=== PATIENT | male | born 1950 | race Hispanic/Latino ===

== ENCOUNTER → 2017-12-30 | Day surgery (SDC) | payer BC ==
--- NOTE | 2017-12-29 13:35 | Diagnostic Imaging Report ---
PROCEDURE: X-RAY CHEST, TWO VIEWS COMPARISON: None. INDICATIONS: PRE OPERATIVE CHEST X-RAY FOR CYSTOSCOPY FINDINGS: LUNGS: Well-inflated. No mass or infiltrate. Pulmonary vasculature is normal. There is mild central bronchial wall thickening. PLEURA: No effusions or pneumothorax. HEART \T\ MEDIASTINUM: The heart is mildly enlarged. There is mild aortic ectasia. There is prominence of pulmonary martina. BONES \T\ SOFT TISSUES: No focal osseous lesions. Soft tissues are unremarkable. CONCLUSION: Mild cardiomegaly without vascular congestion. Prominence of the pulmonary martina could be the result of vascular structures or lymphadenopathy. Mild diffuse bronchial wall thickening suggestive of chronic bronchitis. Dictated by: Jason Wall M.D. on 12/29/2017 at 13:36 Electronically approved by: Jason Wall M.D. on 12/29/2017 at 13:36
[~2017-12-30] MED LIST: ASPIR 8181 MG PO; FENTANYL CITRATE/PF 100MCG/2 ML INJ ONE; GENTAMICIN 120MG/NS 100ML 100 ML ONE; LIDOCAINE HCL 2% LOCAL INJ 5 ML SDV VIAL INJ ONE; METFORMIN HCL1000 MG PO; ONDANSETRON HCL INJ 2 MG/ML VIAL ONE; PROPOFOL IV EMULSION 10 MG/ML 20 ML VIAL ONE; SEVOFLURANE INHAL SOLN 250 ML PEN BTL ONE; VIAGRA50 MG PO
--- OUTSIDE RECORDS SUMMARY | 2017-12-30 07:18 | XMS REPORT ---
Author Author [facility] Address Unknown Phone Unavailable Care Team Providers Care Counter Intelligence Agent Name Role Phone JONEL AVILA Unavailable Unavailable Problems This patient has no known problems. Allergies, Adverse Reactions, Alerts This patient has no known allergies or adverse reactions. Medications This patient has no known medications. Results Test Description Test Time Test Comments Text Results Atomic Results Result Comments CHEST 2 VIEWS [place] [address] Patient Name: ASHLIE CADENA MR #: [id number] : 1950 Age/Sex: 67/M Req #: [id number] Adm Physician: Ordered by: JONEL AVILA MD Report #: [id number] Location: OR Room/Bed: Procedure: [id number] DX/CHEST 2 VIEWS Exam Date: 12/29/17 Exam Time: 1300 REPORT STATUS: Signed PROCEDURE: X-RAY CHEST, TWO VIEWS COMPARISON: None. INDICATIONS: PRE OPERATIVE CHEST X-RAY FOR CYSTOSCOPY FINDINGS: LUNGS: Well-inflated. No mass or infiltrate. Pulmonary vasculature is normal. There is mild central bronchial wall thickening. PLEURA: No effusions or pneumothorax. HEART T MEDIASTINUM: The heart is mildly enlarged. There is mild aortic ectasia. There is prominence of pulmonary martina. BONES T SOFT TISSUES: No focal osseous lesions. Soft tissues are unremarkable. CONCLUSION: Mild cardiomegaly without vascular congestion. Prominence of the pulmonary martina could be the result of vascular structures or lymphadenopathy. Mild diffuse bronchial wall thickening suggestive of chronic bronchitis. Dictated by: Nely Yeung M.D. on 12/29/2017 at 13:36 Electronically approved by: Nely Yeung M.D. on 12/29/2017 at 13:36 Dictated By: NELY YEUNG MD [id number] Transcribed By: ABHISHEK on 12/29/17 1336 COPY TO: JONEL AVILA MD
--- OUTSIDE RECORDS SUMMARY | 2017-12-30 07:18 | XMS REPORT ---
Author Author Admin, [place] Organization [facility] Address [address] [address] Phone Allergies, Adverse Reactions, Alerts Allergy Name Reaction Description Start Date Severity Status Provider [place] Critical Active Ryan Salas MD PCN UNKNOWN reaction Severe Active Rashida Gary MD Conditions or Problems Problem Name Problem Code Onset Date Status Entry Date Provider Comment Standard Description Annotate BMI 38.0-38.9 Active Rashida Gary MD Body Mass Index 38.0-38.9, adult Hematuria 599.70 Active Rashida Gary MD Hematuria, unspecified DIABETES MELLITUS 250.00 Active Kelly Dos Santos MD Diabetes mellitus without mention of complication, type II or unspecified type , not stated as uncontrolled OBESITY 278.00 Active Kelly Dos Santos MD Obesity, unspecified ERECTILE DYSFUNCTION 302.72 Active Maria Luisa Phillip MD Psychosexual dysfunction with inhibited sexual excitement Wellness examination, routine medical ICD-V70.0 Inactive Cisco Levine MD (res) ELEVATED BLOOD PRESSURE ICD-796.2 Inactive Cisco Levine MD (res) Wellness examination, routine medical V70.0 Resolved Kelly Dos Santos MD Routine general medical examination at a health care facility ELEVATED BLOOD PRESSURE 796.2 Resolved Kelly Dos Santos MD Elevated blood pressure reading without diagnosis of hypertension Medication List Medication Instructions Start Date Stop Date Generic Name NDC Status Provider Patient Instruction METFORMIN HCL 1000 MG ORAL TABS take 1 tab Twice a Day METFORMIN HCL 68760920785 Active Malorie Joseph MD Active ASPIRIN 81 MG ORAL TBEC 1 by mouth every day ASPIRIN 24416951992 Active Rashida Gary MD Active VIAGRA 100 MG TAB take 1/4 of a tab By Mouth 1 hr before intamacy. SILDENAFIL CITRATE 71398319278 Active Kelly Dos Santos MD Active GLIPIZIDE 5 MG ORAL TABS take 1 tab Twice a Day GLIPIZIDE 5 MG ORAL TABS 595045 GLIPIZIDE Inactive GLIPIZIDE 5 MG ORAL TABS take 1 tab Twice a Day GLIPIZIDE 51716304755 No Longer Active Malorie Joseph MD Active Immunizations Vaccine Administration Date Value Standard Description influenza immunization (Flu Vax) has been administered transcribed from official record influenza virus vaccine, unspecified formulation PEDIATRIC PNEUMOCOCCAL VACCINE ([id number]) #1 given pneumococcal conjugate vaccine, 13 valent influenza immunization (Flu Vax) has been administered given influenza virus vaccine, unspecified formulation Vital Signs Date Name Value Unit Range Description blood pressure, diastolic 83 mm[Hg] BP landers blood pressure, systolic 141 mm[Hg] BP sys height E&M 69 [in_us] Bdy height pulse rate E&M 85 /min Heart rate respiratory rate E&M 18 /min Resp rate temperature E&M 97.3 [degF] Body temperature weight E&M 248 [lb_av] Weight Measured blood pressure, diastolic 83 mm[Hg] BP landers blood pressure, systolic 144 mm[Hg] BP sys height E&M 69 [in_us] Bdy height pulse rate E&M 78 /min Heart rate respiratory rate E&M 20 /min Resp rate temperature E&M 98.8 [degF] Body temperature weight E&M 254 [lb_av] Weight Measured blood pressure, diastolic 85 mm[Hg] BP landers blood pressure, systolic 148 mm[Hg] BP sys height E&M 69 [in_us] Bdy height pulse rate E&M 73 /min Heart rate respiratory rate E&M 17 /min Resp rate temperature E&M 97.2 [degF] Body temperature weight E&M 248 [lb_av] Weight Measured blood pressure, diastolic 82 mm[Hg] BP landers blood pressure, systolic 150 mm[Hg] BP sys height E&M 69 [in_us] Bdy height pulse rate E&M 82 /min Heart rate respiratory rate E&M 16 /min Resp rate temperature E&M 97.3 [degF] Body temperature weight E&M 254 [lb_av] Weight Measured blood pressure, diastolic 77 mm[Hg] BP landers blood pressure, systolic 142 mm[Hg] BP sys height E&M 69 [in_us] Bdy height pulse rate E&M 85 /min Heart rate respiratory rate E&M 20 /min Resp rate temperature E&M 97.9 [degF] Body temperature weight E&M 252.20 [lb_av] Weight Measured blood pressure, diastolic, second observation 84 mm[Hg] BP landers blood pressure, diastolic, third observation 82 mm[Hg] BP landers blood pressure, diastolic 84 mm[Hg] BP landers blood pressure, systolic, second observation 138 mm[Hg] BP sys blood pressure, systolic, third observation 134 mm[Hg] BP sys blood pressure, systolic 138 mm[Hg] BP sys height E&M 69 [in_us] Bdy height pulse rate E&M 71 /min Heart rate respiratory rate E&M 18 /min Resp rate temperature E&M 97.9 [degF] Body temperature weight E&M 256.40 [lb_av] Weight Measured Diagnostic Results Date Name Value Unit Range Description Lab Report: CBC With Differential/Platelet, Comp. Metabolic Panel (14), ... - Hematology lymphocyte count, blood, automated 1.9 X10E3/UL 10*3/mm3 0.7- 3.1 Lab Report: CBC With Differential/Platelet, Comp. Metabolic Panel (14), ... - Chemistry urea nitrogen, blood 10 mg/dL 8-27 creatinine, serum 1.05 mg/dL 0.76-1.27 chloride, serum 97 mmol/L 97-106 Lab Report: CBC With Differential/Platelet, Comp. Metabolic Panel (14), ... - Hematology mean corpuscular volume, RBC 90 fL 79-97 Lab Report: CBC With Differential/Platelet, Comp. Metabolic Panel (14), ... - Chemistry triglyceride, serum, fasting 106 mg/dL 0-149 Lab Report: CBC With Differential/Platelet, Comp. Metabolic Panel (14), ... - Hematology erythrocyte (RBC) count 4.92 X10E6/UL 10*6/mm3 4.14-5.80 Lab Report: CBC With Differential/Platelet, Comp. Metabolic Panel (14), ... - Chemistry Estimated Glomerular Filtration Rate (calc) 75 mL/min/1.73m2 > 59 Lab Report: CBC With Differential/Platelet, Comp. Metabolic Panel (14), ... - Hematology platelet count 241 X10E3/UL 10*3/mm3 884-827 1028/11/15 red blood cell distribution width 13.1 % 12.3-15.4 Lab Report: CBC With Differential/Platelet, Comp. Metabolic Panel (14), ... - Chemistry protein, total, serum 6.8 g/dL 6.0-8.5 HDL cholesterol, serum 51 mg/dL >39 albumin/globulin ratio, serum 1.7 1.1-2.5 Lab Report: CBC With Differential/Platelet, Comp. Metabolic Panel (14), ... - Hematology eosinophils as percent of blood leukocytes 4 % Lab Report: CBC With Differential/Platelet, Comp. Metabolic Panel (14), ... - Chemistry Absolute Neutrophils 3.8 X10E3/UL 10*3/uL 1.4-7.0 microalbumin/creatinine ratio, urine 59.7 MG/G CREAT ug/mg 0.0- 30.0 Lab Report: CBC With Differential/Platelet, Comp. Metabolic Panel (14), ... - Hematology basophil count, absolute 0.1 x10E3/uL 0.0-0.2 Lab Report: CBC With Differential/Platelet, Comp. Metabolic Panel (14), ... - Chemistry alanine aminotransferase (SGPT), serum 34 U/L 0-44 LDL cholesterol, serum 100 mg/dL 0-99 Lab Report: CBC With Differential/Platelet, Comp. Metabolic Panel (14), ... - Hematology monocytes as percent of blood leukocytes 7 % Lab Report: CBC With Differential/Platelet, Comp. Metabolic Panel (14), ... - Chemistry cholesterol, serum 172 mg/dL 100-199 Lab Report: CBC With Differential/Platelet, Comp. Metabolic Panel (14), ... - Hematology mean corpuscular hemoglobin concentration, RBC 34.5 G/DL % 31.5- 35.7 hemoglobin, blood 15.3 g/dL 12.6-17.7 leukocyte count, blood 6.6 X10E3/UL 10*3/mm3 3.4-10.8 hematocrit, blood 44.3 % 37.5-51.0 Lab Report: CBC With Differential/Platelet, Comp. Metabolic Panel (14), ... - Chemistry globulin, serum 2.5 1.5-4.5 Lab Report: Comp. Metabolic Panel (14), Lipid Panel, Testosterone,Free a ... - Chemistry testosterone, serum, free 11.8 pg/mL 6.6-18.1 Lab Report: CBC With Differential/Platelet, Comp. Metabolic Panel (14), ... - Chemistry thyroid stimulating hormone, serum 0.702 u[iU]/mL 0.450-4.500 albumin, serum 4.3 g/dL 3.6-4.8 very low density lipoproteins 21 mg/dL 5-40 Office Visit: Adult Followup Dr. Levine Rm. 1 - Chemistry blood glucose, 2 hours postprandial 127 mg/dL Lab Report: CBC With Differential/Platelet, Comp. Metabolic Panel (14), ... - Chemistry calcium, serum 9.2 mg/dL 8.6-10.2 Lab Report: CBC With Differential/Platelet, Comp. Metabolic Panel (14), ... - Hematology basophils as percent of blood leukocytes 1 % Lab Report: CBC With Differential/Platelet, Comp. Metabolic Panel (14), ... - Urinalysis microalbumin/total urine volume 46.1 mg/L Not Estab. Lab Report: CBC With Differential/Platelet, Comp. Metabolic Panel (14), ... - Hematology monocyte count, blood, automated 0.5 X10E3/UL 10*3/uL 0.1-0.9 Lab Report: CBC With Differential/Platelet, Comp. Metabolic Panel (14), ... - Chemistry immature granulocytes, percentage of total cells, blood 0 % urea nitrogen/creatinine ratio, serum 10 10-22 Lab Report: CBC With Differential/Platelet, Comp. Metabolic Panel (14), ... - Genetics/fertility eGFR if 86 mL/min/1.73m2 >59 Lab Report: CBC With Differential/Platelet, Comp. Metabolic Panel (14), ... - Hematology lymphocytes as percent of blood leukocytes 29 % Lab Report: CBC With Differential/Platelet, Comp. Metabolic Panel (14), ... - Chemistry carbon dioxide, venous blood 25 mmol/L 18-29 sodium, serum 139 mmol/L 136-144 Lab Report: Hemoglobin A1c - Chemistry hemoglobin A1C, blood, as % of total hemoglobin 5.8 % 4.8-5.6 Office Visit: Adult Followup Dr levine Rm6 - Chemistry blood glucose, fasting 93 mg/dL Lab Report: CBC With Differential/Platelet, Comp. Metabolic Panel (14), ... - Chemistry alkaline phosphatase, serum 117 U/L 39-117 Lab Report: Comp. Metabolic Panel (14), Lipid Panel, Testosterone,Free a ... - Chemistry testosterone, total 580 ng/dL [phone] Lab Report: CBC With Differential/Platelet, Comp. Metabolic Panel (14), ... - Hematology Eosinophil Absolute Count 0.3 X10E3/UL 10*3/uL 0.0-0.4 mean corpuscular hemoglobin, RBC 31.1 pg 26.6-33.0 Lab Report: CBC With Differential/Platelet, Comp. Metabolic Panel (14), ... - Chemistry creatinine, random, urine 77.2 mg/dL Not Estab. bilirubin, serum, total 0.7 mg/dL 0.0-1.2 Lab Report: CBC With Differential/Platelet, Comp. Metabolic Panel (14), ... - Hematology neutrophils as percent of blood leukocytes 59 % Lab Report: CBC With Differential/Platelet, Comp. Metabolic Panel (14), ... - Chemistry blood glucose, random 227 mg/dL 65-99 potassium, serum 4.2 mmol/L 3.5-5.2 aspartate aminotransferase (SGOT), serum 30 U/L 0-40 Encounters Date Encounter Provider Code Facility 14:25:18 CDT Est Patient Exp Problem - 15979 Malorie Joseph MD CPT-72496 [facility] 17:00:17 CDT Est Patient Exp Problem - 51499 Malorie Joseph MD CPT-44113 [facility] 17:13:49 CUSTOMIZER Est Patient Exp Problem - 17382 Kelly Dos Santos MD CPT -69983 [facility] 17:33:10 CUSTOMIZER Est Patient Exp Problem - 23945 Kika Barreto D.O. CPT-09369 [facility] 20:23:44 CUSTOMIZER Est Patient Exp Problem - 11005 Ryan Salas MD CPT-50535 [facility] 17:11:17 CUSTOMIZER Est Patient Exp Problem - 14648 Amanda Pichardo MD CPT-40383 [facility] 11:18:41 CUSTOMIZER Est Patient Exp Problem - 91334 Kelly Dos Santos MD CPT -58195 [facility] 17:22:55 CDT Est Patient Exp Problem - 12659 Maria Luisa Phillip MD CPT-33821 [facility] Procedures Code Procedure Name Date Entry Date Standard Description CPT-59311 Prevnar (PCV13) IM 15:37:33 CDT CPT-86355 INFLUENZA VACCINE QUADRIVALENT 3 YRS PLUS IM 16:01:43 CUSTOMIZER CPT-80272 Est Patient Well Exam (40 - 64 Yrs) - [id number] 07:47:53 CUSTOMIZER
--- NOTE | 2017-12-30 12:37 | Operative Report ---
DATE OF PROCEDURE: December 30, 2017 PREOPERATIVE DIAGNOSES 1. Right ureteropelvic junction obstruction, massive. 2. Right double-J ureteral stent, 6 x 28 cm. POSTOPERATIVE DIAGNOSES 1. Right ureteropelvic junction obstruction, massive. 2. Right double-J ureteral stent, 6 x 28 cm. 3. Multiple bladder calculi. 4. Markedly calcified double-J stent. OPERATION 1. Cystourethroscopy. 2. Change right double-J ureteral stent, 6-Swiss x 28 cm. 3. Vesicolitholapaxy for multiple bladder calculi. ANESTHETIC: General. This patient was placed on the table in the lithotomy position and was prepped and draped in a sterile manner after satisfactory anesthesia. A #23-Swiss cystoscope was used, and cystourethroscopy was performed. It was noted that the urethra was normal. The prostatic urethra was about 3.5 cm long, bilobar and occlusive. Cystoscopy was then performed using both right-angle and the foroblique lens. It was noted that the bladder mucosa was normal. There were multiple bladder calculi in the bladder. The tail end of the stent was protruding from the right ureteral orifice, which is normal. The tail end of the stent was very calcified. Under direct vision and fluoroscopic control, the tail end of the stent was grasped and removed completely without difficulty. A 0.038 flexible-tip Glidewire was then passed through the working channel of the cystoscope, through the right ureteral orifice. Then, under direct vision and fluoroscopic control, it was passed all the way up to the renal pelvis. A new 6 x 28 cm double-J stent was threaded over the guidewire through the working channel of the cystocope, through the right ureteral orifice. Then, under direct vision and fluoroscopic control, it was passed all the way up to the renal pelvis, leaving the upper end of the stent in the renal pelvis and the lower end of the stent in the bladder. The guidewire was removed. Vesicolitholapaxy was then performed in the usual fashion, and all bladder calculi were removed. The patient tolerated the procedure well and was taken to the recovery room in satisfactory condition. Plan for this patient is to be placed on maintenance Macrodantin 50 mg once a day. Ultracet tablet 1 every 6 hours p.r.n., and he was given 30. He is to return to the office in about 1 month. Job#: [id number]
== END | disposition home or self-care (01) ==
LOC: OR 07:16
PROVIDERS: ATTEND Specialist
DX: N21.0 Calculus in bladder (principal); N13.5 Crossing vessel and stricture of ureter without hydronephrosis; Z46.6 Encounter for fitting and adjustment of urinary device; E11.9 Type 2 diabetes mellitus without complications; K57.90 Diverticulosis of intestine, part unspecified, without perforation or abscess without bleeding; I45.10 Unspecified right bundle-branch block; Z01.818 Encounter for other preprocedural examination; Z79.82 Long term (current) use of aspirin; Z87.891 Personal history of nicotine dependence
CPT/HCPCS: 36415; 52317; 52332; 71046; 76000; 82948; 88300; C2617; J1580; J2001; J2405

== ENCOUNTER → 2018-08-25 | Day surgery (SDC) | payer BC ==
--- NOTE | 2018-08-18 11:39 | Diagnostic Imaging Report ---
EXAMINATION: PA and lateral views of the chest. COMPARISON: None CLINICAL HISTORY: Preoperative for cystoscopy DISCUSSION: Lungs are well-inflated. No focal airspace consolidation. Nodular opacity projecting over the posterior left sixth rib likely represents summation of osseous and vascular structures. Linear opacity in the left lower lobe compatible with subsegmental atelectasis. No pleural effusion or pneumothorax. Mild tortuosity of the thoracic aorta. Normal heart size. No overt pulmonary edema. No acute osseous abnormality. IMPRESSION: No acute cardiopulmonary abnormalities. Signed by: Dr. Jamel De La Cruz M.D. on 08/18/2018 11:36 AM
[~2018-08-25] MED LIST changes: +DEXAMETHASONE SOD PHOS INJ 4 MG/ML VIAL ONE; +IOPAMIDOL 610MG/1ML 300 MG/ML VIAL IV ONE; +MIDAZOLAM HCL 2 MG/2 ML VIAL ONE
--- OUTSIDE RECORDS SUMMARY | 2018-08-25 07:07 | XMS REPORT ---
Author Author Admin, [place] Organization [facility] Address [address] [address] Phone Allergies, Adverse Reactions, Alerts Allergy Name [...] mention of complication, type II or unspecified type, not stated as uncontrolled OBESITY 278.00 Active [...] 1 tab Twice a Day METFORMIN HCL 96527015750 Active Malorie Joseph MD Active ASPIRIN 81 MG ORAL TBEC 1 by mouth every day ASPIRIN 69816476765 Active Rashida Gary MD Active VIAGRA 100 MG TAB take 1/4 of a tab By Mouth 1 hr before intamacy. SILDENAFIL CITRATE 43225872533 Active Kelly Dos Santos MD Active GLIPIZIDE 5 MG ORAL TABS take 1 tab Twice a Day GLIPIZIDE 5 MG ORAL TABS 075088 GLIPIZIDE Inactive GLIPIZIDE 5 MG ORAL TABS take 1 tab Twice a Day GLIPIZIDE 65708512938 No Longer Active Malorie Joseph MD Active Immunizations Vaccine Administration Date Value Standard Description influenza immunization (Flu Vax) has been administered transcribed from official record influenza virus vaccine, unspecified formulation PEDIATRIC PNEUMOCOCCAL VACCINE ([id number]) #1 given pneumococcal conjugate vaccine, 13 valent [...] lymphocyte count, blood, automated 1.9 X10E3/UL 10*3/mm3 0.7-3.1 Lab Report: CBC With Differential/Platelet, Comp. Metabolic [...] Estimated Glomerular Filtration Rate (calc) 75 mL/min/1.73m2 >59 Lab Report: CBC With Differential/Platelet, Comp. Metabolic Panel (14), ... - Hematology platelet count 241 X10E3/UL 10*3/mm3 156-519 6195/11/15 red blood cell distribution width 13.1 % [...] microalbumin/creatinine ratio, urine 59.7 MG/G CREAT ug/mg 0.0-30.0 Lab Report: CBC With Differential/Platelet, Comp. Metabolic [...] corpuscular hemoglobin concentration, RBC 34.5 G/DL % 31.5-35.7 hemoglobin, blood 15.3 g/dL 12.6-17.7 leukocyte count, [...] 14:25:18 CDT Est Patient Exp Problem - 73120 Malorie Joseph MD CPT-13649 [facility] 17:00:17 CDT Est Patient Exp Problem - 26479 Malorie Joseph MD CPT-18530 [facility] 17:13:49 PROFESSOR OF MANAGEMENT Est Patient Exp Problem - 77313 Kelly Dos Santos MD CPT-70620 [facility] 17:33:10 PROFESSOR OF MANAGEMENT Est Patient Exp Problem - 85898 Kika Barreto D.O. CPT-48994 [facility] 20:23:44 PROFESSOR OF MANAGEMENT Est Patient Exp Problem - 37445 Ryan Salas MD CPT-03156 [facility] 17:11:17 PROFESSOR OF MANAGEMENT Est Patient Exp Problem - 88326 Amanda Pichardo MD CPT-26539 [facility] 11:18:41 PROFESSOR OF MANAGEMENT Est Patient Exp Problem - 81264 Kelly Dos Santos MD CPT-38550 [facility] 17:22:55 CDT Est Patient Exp Problem - 20510 Maria Luisa Phillip MD CPT-40742 [facility] Procedures Code Procedure Name Date Entry Date Standard Description CPT-82780 Prevnar (PCV13) IM 15:37:33 CDT CPT-60473 INFLUENZA VACCINE QUADRIVALENT 3 YRS PLUS IM 16:01:43 PROFESSOR OF MANAGEMENT CPT-34526 Est Patient Well Exam (40 - 64 Yrs) - 44786 07:47:53 PROFESSOR OF MANAGEMENT
--- OUTSIDE RECORDS SUMMARY | 2018-08-25 07:07 | XMS REPORT | Clinical Summary ---
Author Author [facility] Address Unknown Phone Unavailable Care Team Providers Care Adult Secondary Education Instructor Name Role Phone Maria C Becerril MD PCP Allergies Not on File Medications Not on file Active Problems Not on file Encounters Care Team Description Date Type Specialty Celestino Becerril MD Stricture or kinking of ureter; Ureteral fistula 08/12/2018 Hospital Radiology Encounter Celestino Becerril MD Stricture or kinking of ureter (Primary Dx); Ureteral fistula 07/06/2018 Transcribe Access Orders Celestino Becerril MD Pre-op testing (Primary Dx) 07/06/2018 Transcribe Access Orders after 08/24/2017 Social History Date Tobacco Use Types Packs/Day Years Used Never Assessed Sex Assigned at Date Recorded Not on file Industry Job Start Date Occupation Not on file Not on file Not on file Travel End Travel History Travel Start No recent travel history available. Last Filed Vital Signs Not on file Plan of Treatment Health Maintenance Due Date Last Done Comments COLON CANCER SCREENING 2002 SHINGRIX VACCINE (1 of 2) 2002 ZOSTER VACCINE 2012 PNEUMOCOCCAL 2017 POLYSACCHARIDE VACCINE AGE 65 AND OVER PNEUMOCOCCAL-13 2017 INFLUENZA VACCINE 04/28/2018 Procedures Comments Procedure Name Priority Date/Time Associated Diagnosis NM RENAL SCAN W FLOW Routine 08/12/2018 Stricture or kinking of FUNCTION SGL W/DTPA 11:12 AM STRAWHAT BLOCKING OPERATOR ureter Ureteral fistula ECG 12-LEAD Routine 08/12/2018 Stricture or kinking of 10:41 AM STRAWHAT BLOCKING OPERATOR ureter after 08/24/2017 Results * NM Renal Scan W Flow Function Sgl W/Dtpa (08/12/2018 11:12 AM STRAWHAT BLOCKING OPERATOR) Narrative Performed At PROCEDURE:NM RENAL SCAN W FLOW FUNCTION SGL W DTPA [facility] INDICATION:Stricture or kinking of ureter.Ureteral fistula. TECHNIQUE:The patient was injected with 10 mCi of Tc-99m DTPA, IV.Dynamic planar images of the abdomen were acquired for 30 minutes. FINDINGS:Perfusion to the left kidney is normal.Right renal function is decreased.Cortical transit time through the left kidney is less than 5 minutes.Cortical transit time through the right kidney is between 5 and 6 minutes.Urine flows freely from the left kidney into the bladder.Stasis is noted in the right kidney, unchanged on postvoid imaging. Split function: Left kidney 68%, right kidney 32%. IMPRESSION: 1.Probable persistent, significant obstruction of the right kidney, which demonstrates decreased function. 2.No evidence for obstruction of the left kidney. [facility]-[id number] Procedure Note Interface, Radiology Results Incoming - 08/12/2018 1:30 PM STRAWHAT BLOCKING OPERATOR PROCEDURE: NM RENAL SCAN W FLOW FUNCTION SGL W DTPA INDICATION: Stricture or kinking of ureter. Ureteral fistula. TECHNIQUE: The patient was injected with 10 mCi of Tc-99m DTPA, IV. Dynamic planar images of the abdomen were acquired for 30 minutes. FINDINGS: Perfusion to the left kidney is normal. Right renal function is decreased. Cortical transit time through the left kidney is less than 5 minutes. Cortical transit time through the right kidney is between 5 and 6 minutes. Urine flows freely from the left kidney into the bladder. Stasis is noted in the right kidney, unchanged on postvoid imaging. Split function: Left kidney 68%, right kidney 32%. IMPRESSION: 1. Probable persistent, significant obstruction of the right kidney, which demonstrates decreased function. 2. No evidence for obstruction of the left kidney. [id number] Performing Organization Address City/State/Zipcode Phone Number [facility] [address] [place] [address] * ECG 12 lead (08/12/2018 10:41 AM STRAWHAT BLOCKING OPERATOR) Ventricular rate 75 [facility] Atrial rate 75 [facility] MD interval 180 [facility] QRSD interval 104 [facility] QT interval 388 [facility] QTC interval 433 [facility] MUSE P axis 1 55 [facility] QRS axis 1 37 [facility] MUSE T wave axis 26 [facility] MUSE EKG impression Normal sinus rhythm-Normal [facility] ECG-In automated comparison with ECG of 12-MAY-2015 09:35,-No significant change was found- Narrative Performed At Performing Organization Address City/State/Zipcode Phone Number [facility] M[facility] [address] [place] [address] after 08/24/2017 Insurance Payer Benefit Subscriber ID Type Phone Address Plan / Group BCBS BCBS xxxxxxxxxxxxxxx PPO CHOICE PPO/[employer] PPO Advance Directives Patient has advance care planning documents on file. For more information, davin day contact: Martin Amador [address] [place] [address]
[2018-08-25 11:20] VITALS: BP 154/83
--- NOTE | 2018-08-25 12:47 | Operative Report ---
DATE OF PROCEDURE: August 25, 2018 PREOPERATIVE DIAGNOSES 1. Right ureteropelvic junction obstruction, massive. 2. Right double-J ureteral stent. POSTOPERATIVE DIAGNOSES 1. Right ureteropelvic junction obstruction, massive. 2. Right double-J ureteral stent. OPERATION PERFORMED 1. Cystourethroscopy. 2. Right double-J ureteral stent change. CEMENT BLOCK MAKER: Dr. Baires ANESTHETIC: General. Mr. Garduno is a 68-year-old male who presented initially a few years ago with massive right ureteropelvic junction obstruction. He underwent cystoscopy and stent placement. He comes this time for stent change, which is changed every 6 months. This patient was placed on the table in the lithotomy position and was prepped and draped in a sterile manner after satisfactory anesthesia. A 23-Tristanian cystoscope was used, and cystourethroscopy was performed. The tail end of the stent was protruding from the right ureteral orifice, which is normal. Under direct vision and fluoroscopic control, the tail end of the stent was grasped and removed completely. A 0.38 flexible-tip Glidewire was then passed through the working channel of the cystoscope, through the right ureteral orifice, and then, under direct vision and fluoroscopic control, was passed all the way up to the right renal pelvis. A 6-Tristanian x 28-cm double-J ureteral stent was then passed over the guidewire, through the working channel of the cystoscope, through the right ureteral orifice and then passed all the way up to the right renal pelvis, leaving the upper end of the stent in the renal pelvis and the lower end of the stent in the bladder. The bladder was drained, and the cystoscope was removed. Plan for this patient is to be placed on Macrobid 100 mg 1 twice a day for 1 week and Ultracet tablet 1 every 6 to 8 hours p.r.n. and was given 20. He is to return to the office in 6 weeks. Job#: [id number]
--- NOTE | 2018-09-01 10:50 | Diagnostic Imaging Report ---
PROCEDURE:FLUORO UP TO 1 HR-GENERAL INDICATION:Right renal stent exchange COMPARISON:None. FINDINGS:A total of 3 fluoroscopic images were taken and saved. A right double-J ureteral stent is noted on two of the images. The other image shows a wire overlying the right kidney. Fluoroscopy time was not specified. CONCLUSION:As above; please see the full report provided by the performing physician. Antoni Strickland D.O. Dictated by: Antoni Strickland D.O. on 09/01/2018 at 11:00 Electronically approved by: Antoni Strickland D.O. on 09/01/2018 at 11:00
== END | disposition home or self-care (01) ==
LOC: OR 07:05
PROVIDERS: ATTEND Specialist
DX: N13.5 Crossing vessel and stricture of ureter without hydronephrosis (principal); E11.9 Type 2 diabetes mellitus without complications; Z46.6 Encounter for fitting and adjustment of urinary device; Z01.818 Encounter for other preprocedural examination; Z88.1 Allergy status to other antibiotic agents; Z88.0 Allergy status to penicillin; Z79.82 Long term (current) use of aspirin; Z79.84 Long term (current) use of oral hypoglycemic drugs
CPT/HCPCS: 36415; 52332; 71046; 82948; 88300; C1758; C2617; J1100; J1580; J2001; J2250; J2405; J2704; 76000

== ENCOUNTER → 2019-03-23 | Day surgery (SDC) | payer BC ==
[2019-03-16 14:47] LABS: BASOPHILS # (AUTO) 0.1 (0.0-0.1); BASOPHILS % 0.9 % (0.0-1.0); EOSINOPHILS # (AUTO) 0.2 (0.0-0.4); EOSINOPHILS % 3.2 % (0.0-6.0); HEMATOCRIT 41.8 % (38.2-49.6); HEMOGLOBIN 14.6 g/dL (14.0-18.0); LYMPHOCYTES # (AUTO) 1.6 (1.0-3.2); MEAN CORPUSCULAR HEMOGLOBIN 31.2 pg (28-32); MEAN CORPUSCULAR HGB CONC 34.9 g/dL (31-35); MEAN CORPUSCULAR VOLUME 89.3 fL (81-99); MONOCYTES # (AUTO) 0.6 (0.2-0.8); NEUTROPHILS # (AUTO) 4.3 (2.1-6.9); NEUTROPHILS % 63.6 % (38.7-80.0); PLATELET COUNT 208 x10e3/uL (140-360); RED BLOOD COUNT 4.68 x10e6/uL (4.3-5.7)
--- NOTE | 2019-03-16 14:53 | Diagnostic Imaging Report ---
EXAMINATION: PA and lateral views of the chest. COMPARISON: None CLINICAL HISTORY: Preoperative evaluation, cystogram DISCUSSION: Lines/tubes: None. Lungs: The lungs are well inflated and clear. No pneumonia or pulmonary edema. Pleura: No pleural effusion or pneumothorax. Heart and mediastinum: The cardiomediastinal silhouette is normal. Bones and soft tissues: No acute bony abnormalities. IMPRESSION: No acute cardiopulmonary abnormalities. Signed by: Dr. Xavi Smiley M.D. on 03/16/2019 2:49 PM
[2019-03-16 14:58] LABS: INR 0.97; PROTHROMBIN TIME 13.4 seconds (11.9-14.5)
[2019-03-16 15:06] LABS: BLOOD UREA NITROGEN 13 mg/dL (7-26); BUN/CREATININE RATIO 12 (6-25); CALCIUM 9.6 mg/dL (8.4-10.2); CARBON DIOXIDE 28 mmol/L (22-29); CHLORIDE 99 mmol/L (98-107); CREATININE, SERUM 1.07 mg/dL (0.72-1.25); EST GLOMERULAR FILTRATION RATE > 60 ML/MIN (60-); GLUCOSE 120 mg/dL (74-118); SODIUM 137 mmol/L (136-145)
[~2019-03-23] MED LIST changes: -DEXAMETHASONE SOD PHOS INJ 4 MG/ML VIAL ONE; -ONDANSETRON HCL INJ 2 MG/ML VIAL ONE; +ONDANSETRON HCL INJ 2MG/ML 2ML 2 MG/ML VIAL ONE
--- OUTSIDE RECORDS SUMMARY | 2019-03-23 07:09 | XMS REPORT | Clinical Summary ---
Author Author [facility] Address Unknown Phone Unavailable Care Team Providers Care Welder Gun Name Role Phone Maria C Becerril MD PCP Unavailable Allergies Not on File Medications Not on file Active Problems Not on file Encounters Care Team Description Date Type Specialty Celestino Becerril MD Stricture or kinking of ureter; Ureteral fistula 08/12/2018 Hospital Radiology Encounter Celestino Becerril MD Stricture or kinking of ureter (Primary Dx); Ureteral fistula 07/06/2018 Transcribe Access Orders Celestino Becerril MD Pre-op testing (Primary Dx) 07/06/2018 Transcribe Access Orders after 03/22/2018 Social History Date Tobacco Use Types Packs/Day Years Used Never Assessed Sex Assigned at Date Recorded Not on file Industry Job Start Date Occupation Not on file Not on file Not on file Travel End Travel History Travel Start No recent travel history available. Last Filed Vital Signs Not on file Plan of Treatment Health Maintenance Due Date Last Done Comments COLONOSCOPY SCREENING 2002 SHINGLES VACCINES (#1) 2002 65+ PNEUMOCOCCAL VACCINE 2017 (1 of 2 - PCV13) INFLUENZA VACCINE 04/28/2019 Procedures Comments Procedure Name Priority Date/Time Associated Diagnosis NM RENAL SCAN W FLOW Routine 08/12/2018 Stricture or kinking of FUNCTION SGL W/DTPA 11:12 AM TRIAL MANAGEMENT ASSOCIATE ureter Ureteral fistula ECG 12-LEAD Routine 08/12/2018 Stricture or kinking of 10:41 AM TRIAL MANAGEMENT ASSOCIATE ureter after 03/22/2018 Results * NM Renal Scan W Flow Function Sgl W/Dtpa (08/12/2018 11:12 AM TRIAL MANAGEMENT ASSOCIATE) Specimen Narrative Performed At PROCEDURE:NM RENAL SCAN W [...] evidence for obstruction of the left kidney. [facility]-[id number] Procedure Note Interface, Radiology Results Incoming - 08/12/2018 1:30 PM TRIAL MANAGEMENT ASSOCIATE PROCEDURE: NM RENAL SCAN W FLOW FUNCTION [...] evidence for obstruction of the left kidney. [facility]-[id number] Performing Organization Address City/State/Zipcode Phone Number [facility] [address] [place] [address] * ECG 12 lead (08/12/2018 10:41 AM TRIAL MANAGEMENT ASSOCIATE) Ventricular 75 [facility] rate Atrial rate 75 [facility] NC interval 180 [facility] QRSD interval 104 [facility] QT interval 388 [facility] QTC interval 433 [facility] P axis 1 55 [facility] QRS axis 1 37 [facility] T wave axis 26 [facility] EKG impression Normal sinus rhythm-Normal [facility] MUSE ECG-In automated comparison with ECG of 12-MAY-2015 09:35,-No significant change was found- Specimen Narrative Performed At Performing Organization Address City/State/Zipcode Phone Number [facility] [address] [place] [address] after 03/22/2018 Insurance Type Payer Benefit Subscriber ID Effective Phone Address Plan / Dates Group PPO BCBS BCBS xxxxxxxxxxxxxxx [id number] CHOICE resent PPO/[employer] PPO Advance Directives Patient has advance care planning documents on file. For more information, davin day contact: Martin Amador [address] [place] [address]
[2019-03-23 12:02] VITALS: BP 141/84
--- NOTE | 2019-03-24 08:32 | Operative Report ---
DATE OF PROCEDURE: 03/23/2019 SURGEON: Celestino Becerril MD PREOPERATIVE DIAGNOSES: 1. Right ureteropelvic junction obstruction, severe. 2. Right double-J ureteral stent. POSTOPERATIVE DIAGNOSIS: 1. Right ureteropelvic junction obstruction, severe. 2. Right double-J ureteral stent. OPERATION: Cystourethroscopy and stent change, 6 x 28 cm. ANESTHETIC: General. INDICATIONS FOR PROCEDURE: Mr. Garduno is a 68-year-old male, who presented with a chief complaint of pain on the right side and workup showed that he had severe ureteropelvic junction obstruction. He was referred by Nephrology Department about 3-4 years ago. He underwent cystoscopy and stent placement and now we are changing the stent every six months. He presented at this time for stent change. DESCRIPTION OF PROCEDURE: This patient was placed on the table in the lithotomy position and was prepped and draped in a sterile manner after satisfactory anesthesia. A #23-Lao cystoscope was used and cystourethroscopy was performed and the tail end of the stent was protruding through the right ureteral orifice, which is normal. Under direct vision and fluoroscopic control, the tail end of the stent was grasped and removed completely without difficulty. A 0.38 flexible tipped Glidewire was then passed through the working channel of the cystoscope through the right ureteral orifice and then under direct vision and fluoroscopic control was passed all the way up to the renal pelvis. A 6-Lao x 28 cm double-J stent was then threaded over the guidewire all the way up to the right renal pelvis leaving the upper end of the stent in the renal pelvis and the lower end of the stent in the bladder. The guidewire was removed. The bladder was drained. Cystoscope removed. The patient tolerated the procedure well and was taken to the recovery in satisfactory condition. Plans for this patient is to be placed on Cipro 500 mg one twice a day for five days. Ultracet tablet one every 6 to 8 hours p.r.n. and was given 30. He is to return to the office in about six weeks. Celestino Becerril MD MA/DIONE /[id number]
== END ==
LOC: OR 07:03
PROVIDERS: ATTEND Specialist
DX: N13.5 Crossing vessel and stricture of ureter without hydronephrosis (principal); Z46.6 Encounter for fitting and adjustment of urinary device; E11.9 Type 2 diabetes mellitus without complications; K57.90 Diverticulosis of intestine, part unspecified, without perforation or abscess without bleeding; Z88.1 Allergy status to other antibiotic agents; Z88.0 Allergy status to penicillin; Z01.810 Encounter for preprocedural cardiovascular examination; Z01.812 Encounter for preprocedural laboratory examination; Z01.818 Encounter for other preprocedural examination; Z79.82 Long term (current) use of aspirin; Z79.84 Long term (current) use of oral hypoglycemic drugs; Z87.891 Personal history of nicotine dependence
CPT/HCPCS: 36415 ×2; 52332; 71046; 74420; 80048; 82948; 85025; 85610; 88300; 93005; C2617; J1580; J2001; J2250; J2405; J2704; Q9967; J3010